=== PATIENT | female | born 1995 | race Caucasian/White ===

== ENCOUNTER 2017-03-17 13:33 | Emergency (ER) | payer BC ==
--- OUTSIDE RECORDS SUMMARY | 2017-03-17 14:09 | XMS REPORT | Continuity of Care Document ---
:1995 Author Organization [facility] ([facility]) Address [address] [place] [address] Phone [phone] Care Team Providers Name Role Phone Yunior Kirk Primary Care Provider [phone] Source Comments This disclosure is being made pursuant to the Care Everywhere program, applicable federal and state laws, and may not contain all informaitonavailable regarding this patient.[facility] ([facility]) Active Allergies and Adverse Reactions Allergen Noted Date Severity Reactions Comments Cephalexin Urticaria (Hives) Mom states lindy gets bloody stools Current Medications Prescription Sig. Disp. Refills Start Date End Date Status albuterol (VENTOLIN Use 2 Puffs by 1 Inhaler 0 08/16/2010 Active HFA) 90 inhalation every 6 mcg/Actuation hours as needed for inhaler Wheezing. Indications: Exercise-Induced Bronchospasm Prevention ibuprofen 400 mg Take 400 mg by mouth Active tablet every 6 hours as needed. mupirocin 2 % apply topically 2 22 g 0 10/28/2014 Active ointment times daily. Indications: FURUNCULOSIS anakinra (KINERET) Inject 0.67 mL (100 30 Syringe 6 10/17/2016 Active 100 mg/0.67 mL mg total) injection subcutaneously daily. 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 Presumptive diagnosis of Systemic FILI based on elevated inflammatory markers , rash, and minimal elbow and ankle effusion 01/2008. Methotrexate 08/05 Anakinra 10/05 2. Recurrent UTI -last 03/2008 3. Exercise induced asthma, hay fever, and allergies to animals. 4. She was born full term via , secondary to maternal fevers. There were no complications. She met her developmental milestones appropriately. Immunizations are up to date. She has had varice lla. She has a history of recurrent swimmer's ear, but no recurrent otitis media. Rheumatologic Family Hx: There is a significant family history in the patient' s father and sister of Benign Hematuria. Patient's father is a 51 year male on Lipitor and mother is a 46 year old female . Maternal grandmother has type 2 diabetes. Paternal grandmother has rheumatoid arthritis. Great uncle has a history of stroke at age 62 and diabetes type 2. There is otherwise no family history of megan pus, inflammatory bowel disease, psoriasis, thyroid disease or recurrent miscarriages. Patient's sister has diabetes-juvenile onset. Social Hx : Lindy's sister Nathalie juvenile insulin dependent diabetes. Most Recent Encounters Date Type Specialty Providers Description 02/07/2017 Hospital Encounter Pediatrics - Francisca Villareal MD Chief Comp: Patient Specialty Reported Reason For Visit 02/07/2017 Hospital Encounter Pediatric Francisca Villareal MD Dx: Systemic Rheumatology juvenile idiopathic arthritis (Primary Dx) 01/04/2017 Telephone Pediatric [facility], Chief Comp: Rheumatology Cynthia Brown RN Medications Refill Immunizations Name Dates Previously Given Next Due Influenza 07/06/2009 Influenza, PF 08/30/2012,08/22/2011 Influenza, quadrivalent PF 10/17/2016 Influenza, unspecified 09/02/2008 Social History Tobacco Use Types Packs/Day Years Used Date Never Smoker Smokeless Tobacco: Never Used Last Filed Vital Signs Vital Sign Reading Time Taken Blood Pressure 133/74 02/07/2017 4:18 PM CDT Pulse 63 02/07/2017 4:18 PM CDT Temperature 36.8 C (98.2 F) 02/07/2017 4:18 PM CDT Respiratory Rate 18 02/07/2017 4:18 PM CDT Height 1.76 m (5' 9.29") 02/07/2017 4:18 PM CDT Weight 98.7 kg (217 lb 9.5 oz) 02/07/2017 4:18 PM CDT Body Mass Index 31.86 02/07/2017 4:18 PM CDT Oxygen Saturation 99% 02/02/2012 9:45 AM CDT Plan of Care Date Type Specialty Providers Description 08/15/2017 Appointment Pediatric Rheumatology Francisca Villareal MD Chief Comp: Patient [address] [place] [address] Visit [phone] (Fax) Health Maintenance Due Date Last Done Comments Hepatitis B Vaccine (1 of 3 - 1995 Primary Series) HPV Vaccine (1 of 3 - Female 2008 3 Dose Series) Tdap Vaccine 2008 Meningococcal Vaccine (1 of 2013 1) Lipid Disorder Screening 2015 MMR Vaccine 2015 Td Vaccine 2015 Varicella Vaccine (1 of 2 - 2015 Adult - No Evidence of Immunity) Influenza Vaccine: Seasonal Completed 10/17/2016, Additional history exists 08/30/2012, 08/22/2011 Results from Last 3 Months URINALYSIS (02/07/2017 5:26 PM) Component Value Range Color, Urine Straw Straw, Pale Yellow, Yellow, Clear, None Clarity, Urine Clear Clear pH, Urine 7.0 <9.0 Glucose, Urine Negative Negative Blood, Urine Negative Negative Ketones, Urine Negative Negative Protein, Urine Negative Negative Urobilinogen, Urine Normal Normal Bilirubin, Urine Negative Negative Leukocyte Esterase, Urine Negative Negative Nitrite, Urine Negative Negative Spec Salyer, Urine 1.010 1.000-1.030 Specimen Urine PROTEIN-URINE,RANDOM (02/07/2017 5:26 PM) Component Value Range Total Protein, Urine, Random 5 mg/dL Protein/Creatinine Ratio 0.08 <=0.20 Specimen Urine CREATININE-URINE, RANDOM (02/07/2017 5:26 PM) Component Value Range Creatinine, Urine, Random 62.9 mg/dL Specimen Urine DIFFERENTIAL (02/07/2017 5:20 PM) Component Value Range % Neutrophils-Auto Diff 47.5 % Neutrophils-Auto Diff 2490 8597-8172 /MM3 % Lymphocytes-Auto Diff 28.8 % Lymphocytes-Auto Diff 3053 192-6129 /MM3 % Monocytes-Auto Diff 13.2 % Monocytes-Auto Diff 690 130-860 /MM3 % Eosinophils-Auto Diff 9.5 % Eosinophils-Auto Diff 500(H) 40-390 /MM3 % Basophils 0.6 % Basophils-Auto Diff 30 10-136 /MM3 % Immature Granulocytes-Auto Diff 0.4 % Immature Granulocytes-Auto Diff 20 /MM3 Specimen Whole Blood CBC (COMPLETE BLOOD COUNT) (02/07/2017 5:20 PM) Component Value Range WBC Count 5.2 3.7-10.5 K/MM3 RBC Count 4.85 4.00-5.20 M/MM3 Hemoglobin 13.5 11.9-15.5 g/dL Hematocrit 39 35-47 % MCV (Mean Corpuscular Volume) 81(L) 82-99 FL MCH (Mean Corpuscular Hemoglobin) 28 25-35 PG MCHC (Mean Corpuscular Hemoglobin Concentration) 34 32-36 % Platelet Count 233 150-400 K/MM3 MPV (Mean Platelet Volume) 9.4 9.4-12.3 FL RBC Dist Width-STD 36.9 36.4-46.3 FL RBC Distrib Width 12.8 9.0-14.5 % Nucleated RBC 0 /100 WBC Specimen Whole Blood ERYTHROCYTE SEDIMENTATION RATE (02/07/2017 5:20 PM) Component Value Range ESR (Erythrocyte Sedimentation Rate) 8 0-20 mm/Hr Specimen Whole Blood BLOOD UREA NITROGEN (02/07/2017 5:20 PM) Component Value Range BUN 9(L) 10-20 mg/dL Specimen Blood CREATININE (02/07/2017 5:20 PM) Component Value Range Creatinine 0.8Comment: 0.5-1.0 mg/dL Creatinine switched to enzymatic method on 03/07/2011.GFR equation switched to IDMS-traceable MDRD equation on 03/07/2011. Calculated GFR values are not valid in clinical settings where serum creatinine is changing. Calculated GFR >90 >60 mL/min/1.73 m2 Specimen Blood C-REACTIVE PROTEIN (02/07/2017 5:20 PM) Component Value Range CRP (C-Reactive Protein) <0.5 <=0.5 mg/dL Specimen Blood FERRITIN (02/07/2017 5:20 PM) Component Value Range Ferritin 51.1 13.0-150.0 ng/mL Specimen Blood TRIGLYCERIDES (02/07/2017 5:20 PM) Component Value Range Triglycerides 85Comment: 0-150 mg/dL Reference Ranges: Normal:<150 mg/dL Borderline-high:150-199 mg/dL High: 200-499 mg/dL Very high: > nk=793 mg/dL Specimen Blood LACTATE DEHYDROGENASE (LDH) (02/07/2017 5:20 PM) Component Value Range LDH 314(H) 135-214 U/L Specimen Blood ASPARTATE AMINOTRANSFERASE (02/07/2017 5:20 PM) Component Value Range AST 28Comment: 0-32 U/L Adult reference ranges updated on 09/23/13 at 830am Specimen Blood ALANINE AMINOTRANSFERASE (02/07/2017 5:20 PM) Component Value Range ALT 29Comment: 0-33 U/L The upper limit of normal for alanine aminotransferase (ALT) reference ranges for adults is controversial with some authorities recommending limit as low as 30 U/L for males and 19 U/L for females. Th ere is increased incidence of subclinical liver disease (e.g., early steatohepatitis) in patients with ALT values in the range of 31-41 U/L for males and 20-33 U/L for females. ALT values should alway s be interpreted in conjunction with clinical history, physical examination findings, and, if applicable, data from other diagnostic tests. Specimen Blood ALKALINE PHOSPHATASE (02/07/2017 5:20 PM) Component Value Range ALP 64 35-104 U/L Specimen Blood ALBUMIN (02/07/2017 5:20 PM) Component Value Range Albumin 4.8 3.4-4.8 g/dL Specimen Blood CBC WITH DIFFERENTIAL (02/07/2017 5:20 PM) Specimen Whole Blood Narrative The following orders were created for panel order CBC WITH DIFFERENTIAL. Procedure Abnormality Status --------- ------ CBC (COMPLETE BLOOD COUNT)[[id number]] AbnormalFinal result DIFFERENTIAL[[id number]] AbnormalFinal result Please view results for these tests on the individual orders.
[2017-03-17] MEDS ORDERED: METHYLPREDNISOLONE SOD SUCC/PF 40 MG/ML VIAL IM ONE (14:41)
[2017-03-17] MEDS ORDERED: METHYLPREDNISOLONE SOD SUCC/PF 40 MG/ML VIAL ONE (14:42)
--- NOTE | 2017-03-17 15:01 | ERNOTE ---
Back Pain ER HPI Date of Service: 03/17/17 Presenting Symptoms: injury/pain to back Time Seen by Provider: 03/17/17 14:01 Source: patient, family Exam Limitations: no limitations Immunizations: IMMUNIZATION HX Immunizations Up to Date Yes History of Influenza Vaccine Yes Allergies/Adverse Reactions: Allergies No Known Allergies Allergy (Verified 03/17/17 13:45) Home Medications: HOME MEDICATIONS Anakinra [Kineret] mg SQ DAILY 09/16/12 [Last Taken Unknown] Cyclobenzaprine HCl [Flexeril] 10 mg PO TID PRN #30 tab 03/17/17 [Last Taken Unknown] - Pain Score Pain Score #1 Pain Score: 8 Narrative: Patient is a 21 year old female who presents to the ED with complaints of low back pain and left leg numbness. Patient states she was walking [place] a [place] approximately one month ago, falling and landing on her tailbone. States no significant pain or complications from initial fall until 1.5 weeks ago when she began to have low back pain. States saw her PCP on Sunday and was told she had "cracked vertebrae" even though no radiology studies were done. Patient states she declined pain medications at that time. Patient states yesterday she started to have numbness down left hip and leg. Father states patient was "curled up in position crying this morning from the pain." Patient states she has tried Ibuprofen 800 mg BID and even 5-6 Ibuprofen at one time without relief. Father states Tylenol or Aleve "doesn't work for her". Patient denies loss of bowel or bladder and is able to bear weight Date (Duration): 03/16/17 Timing: Reports: getting worse Quality/Severity: Reports: severe, sharpness, stabbing Location of pain: Reports: lower back, radiating to lf thigh/leg Activities at Onset: Reports: other - injury occured one month ago Recent Injury?: Reports: yes - one month ago Possible Precipitating Factor: Reports: none Modifying Factors - (Improves): Reports: other - changing position Modifying Factors - (Worsens): Reports: other - ambulation, movement Associated Symptoms: Denies: fever/chills, sweating, constipation/incontinence, nausea/vomiting, problems urinating, difficulty walking Review of Systems - Review of Systems Constitutional: Present: no symptoms reported. Absent: recent illness, fever, chills EYE: Present: no symptoms reported ENT: Present: no symptoms reported Respiratory: Present: no symptoms reported. Absent: shortness of breath, cough , orthopnea Cardiology: Present: no symptoms reported. Absent: chest pain, palpitations Gastrointestinal/Abdominal: Present: no symptoms reported. Absent: nausea, vomiting Genitourinary: Present: no symptoms reported Musculoskeletal: Present: other - right and left lower back Skin: Present: no symptoms reported Neurological: Present: no symptoms reported Endocrine: Present: no symptoms reported Hematologic/Lymphatic: Present: no symptoms reported Psych: Present: no symptoms reported - Patient's Past Medical History Patient History - Medical: No pertinent hx Patient History - Cardiac/Respiratory: No pertinent hx Patient History - Cancer: No Hx of Cancer Patient History - Surgical Procedures: No surgical history - Social History Does anyone smoke in the home?: No Smoking Status: Never smoker Alcohol Use: none Drug Use: none - Immunizations Immunizations Up to Date: Yes History of Influenza Vaccine: Yes Physical Exam - Physical Exam General Appearance: Present: wd/wn, alert, no apparent distress Eye Exam: Normal inspection: bilateral, PERRL: bilateral Ears, Nose, Throat: Present: normal ENT inspection Neck: Present: normal inspection, nontender, supple, full range of motion. Absent: lymphadenopathy (R), lymphadenopathy (L) Respiratory: Present: no respiratory distress, normal breath sounds, no accessory muscle use, chest nontender, lungs clear. Absent: chest tenderness Cardiovascular/Chest: Present: regular rate, rhythm, no murmur, normal peripheral pulses Peripheral Pulses: N=norm/S=strong/W=weak/B=bound/A=absent: Radial (R): Normal, Radial (L): Normal Gastrointestinal/Abdominal: Present: normal bowel sounds, nontender, nondistended, soft Rectal Exam: Present: deferred Back Exam: Present: normal inspection, normal range of motion, CVA tenderness (R ), CVA tenderness (L), vertebral tenderness Extremity Exam: Present: normal inspection, non-tender, normal range of motion, no edema Neurological Exam: Present: alert, oriented, normal mood/affect, no motor/ sensory deficits Skin Exam: Present: normal color, warm/dry Lymphatic Exam: Present: no adenopathy ED Progress - Vital Signs Patient's Vital Signs:: I have reviewed the patient's vital signs. Vital Signs: Vital Signs 05/20/17 13:41 Temperature 36.4 C L Pulse Rate 60 Respiratory 14 Rate Blood Pressure 148/79 O2 Sat by Pulse 98 Oximetry - Progress/Reassessment Chief Complaint: Back Pain Progress:: Unchanged Progress Note-Subjective: 03/17/17 15:29 Father continues to inquire about narcotics. Explained that patient will have better relief with heating pads, muscle relaxants and rest. Father states that patient has been taking Ibuprofen 200 mg 3-4 at a time and asked "if she should have 7-8 pills at a time instead?" Educated patient and father that excessive ibuprofen use is harmful to both kidneys, liver and can cause cardiomyopathy. Expressed importance of taking medications as prescribed. Father states Aleve and Tylenol does not work for patient and adamant about narcotic use. Departure Clinical Impression: Back pain at L4-L5 level, Sciatica of left side - Departure Disposition: Home Follow Up Needed Condition: Good Instructions: Sciatica, [id number], Form - Excuse from Work, School, or Physical Activity, Back Pain, Adult, [id number] Additional Instructions: Take Flexeril as ordered, no driving or consuming alcohol. Follow up with physician this week. Return to ED if pain worsens or loss of bowel or bladder occurs. Prescriptions: Cyclobenzaprine HCl [Flexeril] 10 mg PO TID PRN #30 tab PRN Reason: MUSCLE SPASMS
[2017-03-17] MEDS ORDERED: HYDROcodone/ACETAMINOPHEN 1 EACH TABLET PO ONE (15:07)
[2017-03-17] MEDS ORDERED: HYDROcodone/ACETAMINOPHEN 1 EACH TABLET ONE (15:15)
[2017-03-17 15:19] VITALS: BP 125/67
== END 2017-03-17 15:20 | disposition home or self-care (01) ==
LOC: ER 13:33
DX: M54.32 Sciatica, left side (principal); M54.5 Low back pain